=== PATIENT | female | born 1960 | race Caucasian/White ===

== ENCOUNTER 2025-02-28 10:16 | Emergency (ER) | payer MEDICARE, SELFPAY ==
--- NOTE | ~2025-02-28 | CT_ITS ---
EXAMINATION: CT HEAD WITHOUT CONTRAST CLINICAL INFORMATION: Fall and head injury COMPARISON: None available. TECHNIQUE: Contiguous axial imaging was performed from the skull base to vertex without intravenous administration of contrast. This CT examination was performed using dose optimization techniques as appropriate, variously including the following: *Automated exposure control *Adjustment of mA and/or kV according to patient size (this includes techniques or standardized protocols for targeted exams where dose is matched to indication/reason for exam; i.e. extremities or head) *Use of iterative reconstruction technique DLP: 676.88 mGy-cm FINDINGS: No acute cortical disruption in the bony calvarium or the skull base. No acute intracranial hemorrhage, mass effect, midline shift, hydrocephalus or herniation. Vogt-white matter differentiation is normal. Prominence of the extra-axial CSF spaces cerebral sulci and ventricles. Sellar/suprasellar region demonstrated no gross masses or hemorrhage. Craniocervical junction demonstrates normal position of the cerebellar tonsils. Degenerative changes in the periodontal C1 region. Polypoid mucosal thickening with increased density left maxillary sinus. There is a periapical abscesses in the left maxillary molar with the likely dehiscence into the left maxillary floor. No hematoma in the intraconal or extraconal compartments of the orbits. Tympanic cavities and mastoid cells are aerated. CT/CT head/brain wo IV con IMPRESSION: No acute fracture, bony calvarium. No acute intracranial hemorrhage. Mild global cerebral atrophy. Polypoid left maxillary sinus disease. Periapical abscess, left maxillary molar likely extending into the left maxillary sinus. Electronically signed by: Julio Reich MD 02/28/2025 11:58 AM EDT
--- NOTE | ~2025-02-28 | CT_ITS ---
EXAMINATION: CT CERVICAL SPINE WITHOUT CONTRAST CLINICAL INFORMATION: Status post fall. COMPARISON: None available. TECHNIQUE: Contiguous axial images through the cervical spine using 3 mm collimation with bone and soft tissue algorithm. Sagittal and coronal reformatted images acquired. DLP: 346.[address] examination was performed using dose optimization techniques as appropriate, variously including the following: *Automated exposure control *Adjustment of mA and/or kV according to patient size (this includes techniques or standardized protocols for targeted exams where dose is matched to indication/reason for exam; i.e. extremities or head) *Use of iterative reconstruction technique FINDINGS: Craniocervical junction is intact with normal alignment between the occipital condyles and lateral masses of C1. Degenerative changes. There is a focal irregularity in the lateral and superior aspect right lateral masses of C1 likely artifactual. C1 is intact. C2 is intact. C3 is intact. C4 is intact. C5 is intact. C6 is intact. C7 is intact. Anterior marginal osteophyte formation and syndesmophyte formation at C3-4, C4-5 and C6-7 levels. Focal calcification of the posterior longitudinal ligament at C3-4 reducing the AP diameter of the central spinal canal. Grade 1 retrolisthesis C4-5 likely degenerative in nature. No prevertebral compartment hematoma. There is a 1.3 cm low-density right thyroid lobe/isthmus junction. Small volume left thyroid lobe. Tympanic cavities and mastoid cells are aerated. Bilateral apical lung scarring. Prominent lingual tonsils. CT/CT cervical spine wo IV con IMPRESSION: Multilevel cervical spondylosis without acute fracture or trauma-related listhesis. Fleischner guidelines were followed. Electronically signed by: Julio Reich MD 02/28/2025 12:07 PM EDT
[2025-02-28 10:34] VITALS: BP 166/55; PULSE 58; RESP 18; TEMP 36.3; O2SAT 98; BMI 34.9
--- NOTE | 2025-02-28 11:13 | ED.FALL ---
HPI - Fall General Chief Complaint: Fall Stated Complaint: fell in shower head inj Time Seen by Provider: 02/28/25 11:07 Source: patient Mode of arrival: ambulatory Limitations: no limitations History of Present Illness ED Provider: DR. Tejeda HPI Narrative: A 65-year-old female with past medical history significant for HTN controlled well with lisinopril, patient was at her usual health status when she was taking a shower this morning slipped on the wet floor fall down forward hitting her forehead on the edge of the bath tub, no LOC, no neck injury, patient feels both hands and wrist are feeling numb, no CP, no SOB, no abdominal pain, no LOC. Patient is not taking blood thinner. Related Data Allergies Allergy/AdvReac Type Severity Reaction Status Date / Time No Known Allergies Allergy Verified 02/28/25 10:36 Review of Systems Review of Systems: All other systems are reviewed and are negative Constitutional: Reports as per HPI and Reports no additional constitutional complaints Eyes: Reports as per HPI and Reports no additional eye complaints Reports system reviewed and no additional complaints, except as documented Cardiovascular: Reports as per HPI and Reports no additional cardiovascular complaints Respiratory: Reports as per HPI and Reports no additional respiratory complaints Gastrointestinal: Reports as per HPI and Reports no additional gastrointestinal complaints Genitourinary: Reports no additional female genitourinary complaints Musculoskeletal: Reports no additional musculoskeletal complaints Skin/Breast: Reports system reviewed and no additional complaints, except as docu Psychiatric: Reports no additional psychiatric complaints Endocrine: Reports no additional endocrine complaints Hematologic/Lymphatic: Reports no additional hematologic/lymphatic complaints Allergic/Immunologic: Reports no additional allergic/immunologic complaints Reports system reviewed and no additional complaints, except as documented and Reports Abnormal speech present [facility] Social History Social History Advance Directives: No Advance Directives Information Provided: Yes Do you have a plan to hurt others: No Plan Physical Exam Vital Signs: Vital Signs: Last Vital Signs Temp 97.3 F 02/28/25 10:34 Pulse 58 02/28/25 10:34 Resp 18 02/28/25 10:34 BP 166/55 H 02/28/25 10:34 Pulse Ox 98 02/28/25 10:34 O2 Del Method Room Air 02/28/25 10:34 BMI result Body Mass Index 34.9 Vital signs have been reviewed and appear to be correct. Blood pressure elevated. Heart rate normal. Respiratory rate normal. Temperature normal. Oxygen saturation normal. Appearance: Alert. Oriented X3. No acute distress. Head: Normal external exam. Normocephalic. Atraumatic. No Win signs noted. No raccoon eyes noted Eyes: PERRLA. EOMI. Conjunctiva and sclera normal. Eyelids normal. ENT: TM's Normal. Pharynx normal. Uvula midline. Moist mucous membranes. No trismus noted. No drooling noted. No muffled voice noted. Neck: Normal inspection. Neck supple. FROM. No adenopathy. Thyroid Normal. No meningeal signs. No neck mass noted. CVS: Normal heart rate and rhythm. Heart sound normal. No murmurs noted. Pulses normal throughout. Respiratory: No respiratory distress. Painless inspiration. Breath sounds normal. No wheezes/rales/rhonchi noted. Chest nontender. No accessory muscle usage noted or decreased air movement noted. Abdomen: Soft and nontender. Bowel sounds normal in all 4 quadrants. No distention noted. No organomegaly noted. No visible injury noted. Back: No CVA tenderness. Full range of motion noted. Skin: Skin warm and dry. Normal skin color. Normal skin turgor. No rashes/lesions/lacerations noted. Extremities: No lower extremity edema. Extremities exhibit normal range of motion. Extremities nontender. Neuro: Mental status: Normal attention, orientation, memory, and affect. Cranial nerves: Pupils are equal, round and reactive to light, EOMI, visual irwin are fall, face is symmetric, facial sensations are normal. Motor examination normal muscle tone, strength to 4 extremities. DTR are +2, planter's are flexor. Sensory exam; normal coordination, no ataxia, gait stable. Cerebellar exam: [id number] and [id number] is normal. Extrapyramidal system: No tremors, no rigidity with normal facial expressions. Pronator drift not present Course Reevaluation(s) Reevaluation #1: Head injury with no LOC no blood thinner, GCS of 15, normal neuro exam. Normal head CT and cervical spine. No concern of cardiac events as patient is describing a mechanical fall. Will reassure and discharge with instruction of closed head injury. Time: 12:24 Medical Decision Making Differential Diagnosis Differential Diagnoses: The differential diagnosis associated with the presentation includes (Intracranial bleed, cervical spine injury, chest injury, extremity injury, abdominal injury.) Admission/Observation Consideration of admission/observation: Escalation of care including admission/observation considered Independent Interpretation I performed an independent interpretation of an: CT Scan (Head/cervical spine CT: No acute intracranial or cervical spine injury.) Radiology Impression Discussion of test interpretation with radiology: I have reviewed the radiologist's reading. Discharge Plan Discharge Clinical Impression: Accident due to mechanical fall without injury, Closed head injury Patient Disposition: Home, Self-Care Instructions: Head Injury (ED) Referrals: Ezra Montemayor MD [Primary Care Provider, Internal Medicine] Print Language: Trinidadian
[2025-02-28 12:28] VITALS: BP 123/43; BP 166/55; PULSE 56; PULSE 58; RESP 16; RESP 18; TEMP 36.3; TEMP 36.9; O2SAT 95; O2SAT 98
[2025-02-28 12:33] VITALS: BP 123/43; PULSE 56; RESP 16; TEMP 36.9; O2SAT 95
== END 2025-02-28 12:33 | disposition home or self-care (01) ==
PROVIDERS: Emergency Provider Emergency Medicine; PCP Internal Medicine
DX: S00.83XA Contusion of other part of head, initial encounter (principal); W18.2XXA Fall in (into) shower or empty bathtub, initial encounter; Y93.E1 Activity, personal bathing and showering; Y92.091 Bathroom in other non-institutional residence as the place of occurrence of the external cause; Y99.8 Other external cause status; I10 Essential (primary) hypertension
CPT/HCPCS: 70450; 72125; 99283; 99284

== ENCOUNTER → 2025-02-28 11:14 | Outpatient (BNV) | payer MEDICARE, SELFPAY | PROVIDERS: Emergency Provider Emergency Medicine; PCP Internal Medicine; Visit Provider Radiology Diagnostic Radiology | DX: M47.812 Spondylosis without myelopathy or radiculopathy, cervical region (principal); S09.90XA Unspecified injury of head, initial encounter; W19.XXXA Unspecified fall, initial encounter | CPT/HCPCS: 70450; 72125 ==